=== PATIENT | male | born 1990 | race Caucasian/White ===

== ENCOUNTER 2023-02-05 14:38 | Emergency (ER) | payer OTHER, SELFPAY | END 2023-02-05 17:09 | disposition left against medical advice (07) | LOC: HO.ED 17:09 | PROVIDERS: Emergency Provider Emergency Medicine | DX: R09.A2 Foreign body sensation, throat (principal); Z53.21 Procedure and treatment not carried out due to patient leaving prior to being seen by health care provider ==